=== PATIENT | female | born 1955 | race Caucasian/White ===

== ENCOUNTER 2025-07-11 14:51 | Emergency (ER) | payer MEDICARE, BC ==
[~2025-07-11] VITALS: Ht 157.5 cm; Wt 68.7 kg
--- NOTE | 2025-07-11 15:01 | Physician Documentation ---
History of Present Illness ~ Stated Complaint: R LEG PAIN Time Seen by MD: 17:20 HPI 69-year-old female presents to ED with the complaint of acute onset right lower extremity pain. She has a history of falls overall last several months and has chronic right hip pain. But states that she has increased pain and swelling in her right leg. States that she thinks she has a blood clot. At that she has a history of blood clots but does not take any blood thinners since she had chemotherapy. does not take aspirin Denies chest pain or shortness of breath Day of Onset: Jul 11, 2025 Medication Reconciliation Allergies: Coded Allergies: Penicillins (Verified Allergy, Severe, HIVES, 07/11/25) cephradine (Verified Allergy, Severe, HIVES, 07/11/25) levofloxacin (Verified Allergy, Severe, HIVES, 07/11/25) tramadol (Verified Allergy, Severe, HIVES, 07/11/25) Scheduled PRN Oxycodone HCl/Acetaminophen (Percocet 5-325 mg Tablet), 1-2 TABLET PO Q4H PRN for pain Review of Systems All Other Systems at this time: Reviewed and Negative ROS As stated above in the HPI, otherwise all systems are reviewed and negative. Constitutional: Denies: fever Physical Exam Vital Signs: RN Vital Signs have been reviewed: Yes Physical Exam General: Alert, no apparent distress. Extremities: Normal range of motion Homans sign, no notable redness Neurologic: Oriented x4. Psychiatric: Normal mood and affect. Skin: Normal color, warm and dry. No edema, no ecchymosis. General Appearance: alert, WD/WN, moderate distress Head: normal inspection EENT: PERRL/EOMI Legs: normal inspection, soft tissue tenderness Knees: no evidence of injury, swelling (Right lower extremity) Distal Function: no motor deficit Skin: normal color Lymphatic: normal inspection Neurologic: oriented x4 Psychiatric: normal mood/affect Progress Results/Orders Results/Orders Orders - LORENA ANDREWS PAC Hip Unilateral 2-3 Views (07/11/25 17:45) Completed Orders - LORENA ANDREWS PAC Hip Unilateral 2-3 Views (07/11/25 17:45) Oxycodone/Acetaminophen Tablet (Percocet (07/11/25 17:40) Vital Signs 07/11/25 07/11/25 07/11/25 14:56 18:06 18:09 Temp 97.4 98.2 Pulse 94 70 Resp 20 16 18 B/P (MAP) 150/87 124/76 Pulse Ox 98 99 O2 Flow Rate 0 Medical Decision Making Additional information obtaine: N/A Findings 69-year-old female who presents to the emergency department of the evaluation of ascending right lower extremity pain associated with limited swelling and tenderness needs evaluation of vascular occlusion. No reported shortness of breath, or palpitations. Past medical history is pertinent for cancer survivor who received chemotherapy. Pain management in the emergency room provided with Percocet. Ultrasound imaging reassuring for no DVT. Breakthrough pain prescription provided for patient. Patient will continue to follow up with your primary care physician and/or pain management for consideration of neuropathic pain regimen. He is discharged in the emergency room safely with . General Diff Dx:Considerations: Include: Abrasion, Contusion, Fracture, Hematoma, Laceration, Malunion, Neurovascular injury, Open fracture, Sprain, Ulcer, Other (Reflex sympathetic dystrophy, neuropathic pain) Knee Diff Dx:Considerations: Include: Other Ankle Diff Dx:Considerations: Include: Other Foot Diff Dx:Considerations: Include: Other Toe Diff Dx:Considerations: Include: Other (Noncontributory) Departure Disposition: HOME / SELF CARE / HOMELESS Impression: Primary Impression: Right leg pain Condition: Improved Additional Instructions: Your x-ray in the emergency department is reassuring for no fracture of the hip. Ultrasound imaging of your lower leg is also reassuring for no deep vein thrombosis. I provided you with breakthrough pain management and it is recommended that you follow up with your primary care physician for further evaluation. Thank you for visiting emergency department of [facility]. Referrals: NO PRIMARY CARE PROVIDER (PCP) Prescriptions Oxycodone HCl/Acetaminophen (Percocet 5-325 mg Tablet) 5 Mg-325 Mg Tablet 1-2 TABLET PO Q4H PRN for pain, #20 TABLET Prov: LORENA ANDREWS 07/11/25 Education Educated: Patient Educated regarding: diagnosis, treatment, prognosis, need for follow up Signature Scribe Signature: . Attestation: . YUN RUBIO [employer] Jul 11, 2025 15:01 LORENA ANDREWS PAC Jul 11, 2025 18:07
--- NOTE | 2025-07-11 17:57 | RADIOLOGY REPORT ---
CLINICAL INDICATION: Right hip pain TECHNIQUE: HIP [id number] HIP UNILATERAL 2-3 VIEWS Comparison: None FINDINGS/IMPRESSION: : There is no evidence of acute fracture or dislocation. Mild degenerative changes at both hips. Soft tissues are unremarkable.
--- NOTE | 2025-07-11 18:03 | VASCULAR REPORT ---
Technique: Real-time ultrasound imaging, with color Doppler and compression of the right common femoral vein, femoral vein, greater saphenous vein, and popliteal vein. Indication: Right lower extremity pain/swelling Comparison: None Findings: There is normal compressibility and flow augmentation in all of the imaged deep veins. There are no filling defects. Impression: No evidence of DVT in the right lower extremity
[2025-07-11] MEDS ORDERED: OXYC-145 PO (18:06)
[2025-07-11 18:09] VITALS: BP 124/76; PULSE 70; RESP 18; TEMP 98.2; O2SAT 99
== END 2025-07-11 18:15 | disposition home or self-care (01) ==
LOC: ER 14:53
DX: M79.604 Pain in right leg (principal); G89.29 Other chronic pain; Z86.718 Personal history of other venous thrombosis and embolism; Z88.0 Allergy status to penicillin; Z88.1 Allergy status to other antibiotic agents; Z88.5 Allergy status to narcotic agent
CPT/HCPCS: 73502; 93971; 99284